=== PATIENT | male | born 1950 | race Caucasian/White ===

== ENCOUNTER 2016-10-08 15:20 | Emergency (ER) | payer BC ==
[~2016-10-08] VITALS: Ht 188 cm; Wt 94.0 kg
[2016-10-08] MEDS ORDERED: LISI1TAB5 PO (15:49)
[2016-10-08] MEDS ORDERED: PROPARACAINE OPHTH 0.5%, 15ML ONE (16:38)
[2016-10-08] MEDS ORDERED: FLUORESCEIN OPHTHALMIC 1 MG STRIP ONE (16:39)
[2016-10-08] MEDS ORDERED: IBUPROFEN 200 MG TABLET ONE (16:39)
[2016-10-08] MEDS ORDERED: FLUORESCEIN OPHTHALMIC 1 MG STRIP EACHEYE ONE (17:00)
[2016-10-08] MEDS ORDERED: IBUPROFEN 200 MG TABLET PO ONE (17:00)
[2016-10-08] MEDS ORDERED: PROPARACAINE OPHTH 0.5%, 15ML EACHEYE ONE (17:00)
[2016-10-08 17:02] VITALS: BP 142/78
== END 2016-10-08 17:12 | disposition home or self-care (01) ==
LOC: ED 16:04
DX: H18.821 Corneal disorder due to contact lens, right eye (principal); I10 Essential (primary) hypertension; Z94.7 Corneal transplant status
CPT/HCPCS: 99284